=== PATIENT | female | born 1965 | race Caucasian/White ===

== ENCOUNTER 2016-07-16 13:46 | Emergency (ER) | payer BC, OTHER ==
[2016-07-16] MEDS ORDERED: IOPAMIDOL-300 100 ML VIAL IVP ONE (15:31)
[2016-07-16] MEDS ORDERED: SODIUM CHLORIDE 0.9% 1,000 ML IV ONE (16:31)
== END 2016-07-16 18:04 | disposition home or self-care (01) ==
DX: R07.89 Other chest pain (principal); R06.02 Shortness of breath; I10 Essential (primary) hypertension
CPT/HCPCS: 36415; 71020; 71275; 80053; 81003; 81025; 83690; 83880; 84484; 85025; 93005; 93010; 99284; Q9967